=== PATIENT | female | born 1970 | race Caucasian/White ===

== ENCOUNTER → 2018-12-08 | Outpatient (CLI) | payer BC ==
[~2018-12-08] MED LIST: BUDE10.22 IH; FAMO20TA5 PO; METF-397 PO; QUIN10TA17 PO; QUIN20TA16 PO
--- NOTE | 2018-12-08 12:34 | Diagnostic Imaging Report ---
INDICATION: Routine screening. COMPARISON: 09/21/2015 and 08/19/2013. TECHNIQUE: 2D and 3D bilateral screening mammography was performed with CAD. FINDINGS: Scattered fibroglandular densities are identified bilaterally. The parenchymal pattern is stable. No mass or malignant appearing microcalcifications are seen. The axillae are unremarkable. IMPRESSION: No mammographic features suspicious for malignancy are identified. ACR BI-RADS Category 1: Negative. Result letter will be mailed to the patient. Note: At least 10% of breast cancer is not imaged by mammography. Dictated by: Dictated on workstation # [id number]
== END ==
LOC: RAD 09:53
PROVIDERS: ATTEND Nurse Practitioner Community Health
DX: Z12.31 Encounter for screening mammogram for malignant neoplasm of breast (principal)
CPT/HCPCS: 77067

== ENCOUNTER 2021-10-10 07:27 | Outpatient (CLI) | payer BC ==
[~2021-10-10] VITALS: Ht 152.4 cm; Wt 111.0 kg
[2021-10-11] MEDS ORDERED: NORE0.3520 PO (11:57)
[2021-10-11] MEDS ORDERED: METO-351 PO (11:57)
== END 2021-10-11 12:03 | disposition home or self-care (01) ==
LOC: PREOP 07:27
PROVIDERS: ATTEND Surgery
DX: Z01.818 Encounter for other preprocedural examination (principal)

== ENCOUNTER 2021-10-17 09:15 | Day surgery (SDC) | payer BC ==
[2021-10-17] VITALS (12 sets, daily range): BP systolic 128–177; BP diastolic 76–103
[~2021-10-17] VITALS: Ht 152.4 cm; Wt 111.0 kg
[~2021-10-17 09:15] MED LIST changes: +METO-351 PO; +NORE0.3520 PO; -QUIN20TA16 PO; +QUIN20TA36 PO
--- NOTE | 2021-10-17 09:31 | Progress Note-Pre Operative ---
Pre-Operative Progress Note H&P Reviewed The H&P was reviewed, patient examined and no changes noted. Date Seen by Provider: October 17, 2021 Time Seen by Provider: 09:30 Date H&P Reviewed: October 17, 2021 Time H&P Reviewed: 09:25 Pre-Operative Diagnosis: Chronic calculous cholecystitis DONNY TIERNEY APRN October 17, 2021 09:31
[2021-10-17] MEDS ORDERED: proPOfol 200 MG/20 ML (DIPRIVAN) VIAL IV ONE (09:32)
[2021-10-17] MEDS ORDERED: GLYCOPYRROLATE 0.2 MG/ML (ROBINUL) 2 ML VIAL ONE (09:32)
[2021-10-17] MEDS ORDERED: NEOSTIGMINE 3 MG/3 ML VIAL ONE (09:32)
[2021-10-17] MEDS ORDERED: LIDOCAINE PF 2% 5 ML (XYLOCAINE) VIAL ONE (09:32)
[2021-10-17] MEDS ORDERED: HYDR-3817 PO (09:33)
[2021-10-17] MEDS ORDERED: MIDAZOLAM 2 MG/2 ML (VERSED) VIAL ONE (09:33)
[2021-10-17] MEDS ORDERED: ROCURONIUM 50 MG/5 ML (ZEMURON) VIAL IV ONE (09:33)
[2021-10-17] MEDS ORDERED: fentaNYL INJ 100 MCG/2 ML AMP ONE (09:33)
--- NOTE | 2021-10-17 09:33 | Discharge Inst-Surgical ---
D/C Lap Instructions-KIDO Reconcile Patient Problems Problems Reviewed?: Yes New, Converted, or Re-Newed RX: RX on Chart Follow Up Appt in 2 weeks Activity as tolerated No driving for 24 hours No driving while on pain medications Incentive Spirometry use every 2 hours while awake Regular Diet Symptoms to Report: Fever over 101 degree F, Nausea/Vomiting Infection Signs and Symptoms to report: Increased redness, Foul odor of wound, Increased drainage Bathing instructions: May shower Operative Area Clean/Dry; Keep incision clean/dry If any problems/questions: Contact your physician or go to Emergency Room DONNY TIERNEY APRN October 17, 2021 09:33
[2021-10-17] MEDS ORDERED: HYDROcodone/APAP 5 MG/325 MG (LORTAB) TAB PO ONE (09:45)
[2021-10-17] MEDS ORDERED: ACETAMINOPHEN 325 MG TABLET PO PRN (09:45)
[2021-10-17] MEDS ORDERED: morphine INJ 10 MG/ML 1ML (SYR OR VIAL) IVP ONE ×2 (09:45→12:00)
[2021-10-17] MEDS ORDERED: ONDANSETRON 4 MG/2 ML (SDV) Z0FRAN IVP PRN ×3 (09:45→12:00)
[2021-10-17] MEDS ORDERED: morphine INJ 10 MG/ML 1ML (SYR OR VIAL) IVP PRN (09:45)
[2021-10-17] MEDS ORDERED: HYDROmorphone 2 MG/ML VIAL (DILAUDID) IV ONE ×2 (09:45→12:00)
[2021-10-17] MEDS ORDERED: BUP/EPI 0.5% 1:200,000 (SENSORCAINE) 30 ML VIAL ONE (10:00)
[2021-10-17] MEDS ORDERED: ceFAZolin 2 GM IV Premixed 50 ML ONE (10:01)
[2021-10-17] MEDS ORDERED: ceFAZolin 2 GM IV Premixed 50 ML IV ONE (10:15)
[2021-10-17] MEDS ORDERED: LACTATED RINGERS 1,000 ML IV PRN (10:30)
[2021-10-17] MEDS ORDERED: PHENYLEPHRINE 100 MCG/ML 10 ML (ANESTHESIA) SYR ONE (10:56)
[2021-10-17] MEDS ORDERED: SEVOFLURANE (ULTANE) 15 ML INHAL SOLN ONE (11:30)
--- NOTE | 2021-10-17 11:34 | Progress Note-Post Operative ---
Post-Operative Progess Note Surgeon (s)/Cath Lab (s) Surgeon PETR POND MD Cath Lab: [facility] DECISION ANALYST Pre-Operative Diagnosis Chronic calculous cholecystitis Post-Operative Diagnosis sa,e Procedure & Operative Findings Date of Procedure 10/17/21 Procedure Performed/Findings laparoscopic cholecystectomy Anesthesia Type get Estimated Blood Loss Estimated blood loss (mL): minimal Specimens/Packing Specimens Removed gallbladder PETR POND MD October 17, 2021 11:34
--- NOTE | 2021-10-17 12:38 | Anesthesia-General Post-Op ---
General Patient Condition Mental Status/LOC: Same as Preop Cardiovascular: Satisfactory Nausea/Vomiting: Absent Respiratory: Satisfactory Pain: Controlled Complications: Absent Post Op Complications Complications None Follow Up Care/Instructions Patient Instructions None needed. Anesthesia/Patient Condition Patient Condition Patient is doing well, leaving PACU for SDC with no complaints, stable vital signs, no apparent adverse anesthesia problems. No complications reported per nursing. ALEXANDRO DOVER DO October 17, 2021 12:37
[2021-10-17] MEDS ORDERED: HYDROcodone/APAP 5 MG/325 MG (LORTAB) TAB ONE (13:05)
--- NOTE | 2021-10-17 15:59 | OPERATIVE REPORT ---
DATE OF SERVICE: 10/17/2021 ATTENDING PRIMARY CARE PHYSICIAN: Zarina Yap DO. PREOPERATIVE DIAGNOSIS: Symptomatic chronic calculous cholecystitis. POSTOPERATIVE DIAGNOSIS: Symptomatic chronic calculous cholecystitis. PROCEDURE PERFORMED: Laparoscopic cholecystectomy. SURGEON: Petr Pond MD. ANESTHESIA: General endotracheal. ESTIMATED BLOOD LOSS: Minimal. FINDINGS: Hepatomegaly, distended gallbladder with multiple gallstones. DISPOSITION: The patient tolerated the procedure well. INDICATIONS FOR PROCEDURE: The patient is a 51-year-old female, who has had pain in the right upper abdominal quadrant as well as epigastric region for the past several months with radiation towards the back, usually after eating meals. She reports that this was initially mild and she may have had milder symptoms a few years ago. She states that this has become more frequent as well as more severe in nature. She underwent a workup including an ultrasound, which did show multiple gallstones. DESCRIPTION OF PROCEDURE: The patient was brought to the operating room and laid supine on the table. After adequate IV pain and sedative medications and general endotracheal intubation, the abdomen was prepped and draped in a standard surgical fashion. A 0.5% Marcaine with epinephrine was then used to anesthetize the overlying skin in the left upper abdominal quadrant and a transverse skin incision was made using a 15 blade. A 0 silk suture was applied to the medial aspect of the incision for retraction and a Veress needle was inserted with low opening pressure of 0 mmHg. The abdomen was then insufflated to 15 mmHg pressure. The Veress needle was removed and a 5 mm XL trocar was placed followed by a 5 mm 45-degree angle laparoscope visualizing the peritoneal cavity. A four-quadrant abdominal exploration was performed. Hepatomegaly was identified. There was a distended gallbladder, no gallbladder wall thickening. Under direct visualization, we then proceeded to place a supraumbilical 10 mm port after the skin and peritoneal lining were anesthetized using 0.5% Marcaine with epinephrine and a transverse skin incision was made using a 15 blade. In a similar manner, a right upper abdominal quadrant 5 mm port was placed. The patient was then placed in a reverse Trendelenburg position as well as plane right side up, left side down. The fundus of the gallbladder was then retracted anteriorly and superiorly. The hepatoduodenal ligament was then dissected with blunt dissection as well as electrocautery on the hook instrument as well as a [place] dissector. The entire critical view of safety was identified including the triangle of Calot as well as the cystic duct and artery as the only two structures going into the gallbladder as well as the cystic plate behind the proximal gallbladder. A timeout was then taken and cystic duct and artery were then clipped proximally, distally and cut with EndoShears. The gallbladder was then dissected off the liver bed using cautery on hook instrument with visualization of good hemostasis as well as no leaking ducts of Luschka. The gallbladder was removed through the 10 mm port site using an EndoCatch bag. The 10 mm port site fascia and peritoneum were then closed under direct visualization using a Spencer-Sherman device and 0 Vicryl suture. The abdomen was desufflated and remaining ports removed. All skin incisions were closed using 4-0 Monocryl running subcuticular sutures. Wounds were then cleaned and covered with Dermabond. The patient tolerated the procedure well. We will start IV normal pain medication as well as a clear liquid diet. Once she is tolerating clears, has good pain control with oral pain medications, and ambulating well, we will discharge her home where she will be instructed to do no heavy lifting or exertion for the next two weeks. Job ID: [id number] DocumentID: [id number] Dictated Date: 10/17/2021 11:40:33 Feeder Operator Automatic Date: 10/17/2021 15:58:24 Dictated By: PETR PODN MD
--- NOTE | 2021-10-18 08:07 | HISTORY AND PHYSICAL ---
DATE OF SERVICE: ATTENDING PRIMARY CARE PHYSICIAN: Veronika Isabel at [facility]. PROCEDURE DATE: 10/17/2021. HISTORY OF PRESENT ILLNESS: The patient is a 51-year-old female who was referred over to us for gallstones. She reports that she did have labs recently, which did show elevated liver enzymes and then was sent for a CT scan and did show gallstones without gallbladder wall thickening. She also had a hepatitis panel, which was negative, and liver was normal on CT. Upon further questioning, she does report occasional episodes of right upper quadrant pain, but she has not noticed any specific foods or activities that trigger this. She denies any nausea or vomiting as well as no diarrhea or constipation. She also denies any fever or chills. PAST MEDICAL HISTORY: Hypertension, asthma. PAST SURGICAL HISTORY: Bladder dilatation as a child x2. ALLERGIES: No known drug allergies. MEDICATIONS: Aspirin 81 mg, metoprolol, quinapril, norethindrone. FAMILY HISTORY: Maternal grandmother, diabetes. Father, hypertension, type 2 diabetes. Paternal grandfather, myocardial infarction. SOCIAL HISTORY: Negative for tobacco smoke. Rare for alcohol. VITAL SIGNS: Blood pressure is 136/80. Current weight is 244.6 pounds at 5 feet 0 inches. REVIEW OF SYSTEMS: This is a well-nourished female in no acute distress. She is not experiencing any shortness of breath or difficulty breathing. No chest pain, palpitations or diaphoresis. No nausea or vomiting. She does report intermittent episodes of right upper quadrant abdominal pain. No diarrhea or constipation. No red blood per rectum. No dark tarry stools. No fever or chills. No recent inadvertent weight loss. All other review of systems negative. PHYSICAL EXAMINATION: CHEST: Clear. Good breath sounds bilaterally. HEART: Regular, no murmurs. EXTREMITIES: No lower extremity edema. Negative Homans sign. HEENT: No scleral icterus. NECK: No cervical lymphadenopathy. ABDOMEN: Soft and nondistended. There is some tenderness with deep palpation in the right upper abdominal quadrant. No palpable masses. No peritoneal signs. SKIN: Warm, dry and pink. NEUROLOGIC: Awake, alert and oriented x3. ASSESSMENT AND PLAN: A 51-year-old female with a symptomatic chronic calculous cholecystitis. At this time, we will proceed with scheduling her for a laparoscopic cholecystectomy. CC: Veronika Isabel, at [facility] - requested, unable to deliver. Job ID: [id number] DocumentID: [id number] Dictated Date: 10/08/2021 09:22:47 Collection Correspondent Date: 10/08/2021 10:27:09 Dictated By: DONNY TIERNEY APRN
== END 2021-10-17 13:55 | disposition home or self-care (01) ==
LOC: SDC 09:15
PROVIDERS: ATTEND Surgery
DX: K80.10 Calculus of gallbladder with chronic cholecystitis without obstruction (principal); R16.0 Hepatomegaly, not elsewhere classified; K82.8 Other specified diseases of gallbladder; I10 Essential (primary) hypertension; J45.20 Mild intermittent asthma, uncomplicated; E66.01 Morbid (severe) obesity due to excess calories; Z68.42 Body mass index [BMI] 45.0-49.9, adult; Z79.82 Long term (current) use of aspirin; Z79.899 Other long term (current) drug therapy
CPT/HCPCS: 84703; 87081; 88304; 94664